=== PATIENT | male | born 1990 | race Caucasian/White ===

== ENCOUNTER 2019-08-03 16:10 | Emergency (ER) | payer BC, SELFPAY ==
--- NOTE | ~2019-08-03 | CT_ITS ---
EXAMINATION: CT brain wo con EXAM DATE: 08/03/2019 16:38 INDICATION: Posterior head injury with loss of consciousness. TECHNIQUE: Spiral CT of the head was performed without contrast. Axial, coronal and sagittal images were reviewed. The dose-length product (DLP) for this examination was 605.33 mGy-cm. The exposure w as tailored according to patient size, and iterative reconstruction (ASIR) was used as additional dos e reduction technique. Comparison is made to prior examination from 2009. FINDINGS: There is no acute intraparenchymal hemorrhage. No evidence of intraparenchymal brain mass lesion. No evidence of acute infarction. There is no mass effect or midline shift. The ventricles are normal in size. There are no extra-axial collections. There are no acute calvarial fractures. T he orbits are unremarkable. Small vertex scalp fluid collection, contusion/hematoma. There is nearly opacified right frontal sinus, with a defect in the anterior sinus wall and some smal l bone densities within the sinus. This could be from a remote injury assuming that there is no suspi cion of acute right brow injury. Please clinically correlate. IMPRESSION: 1. No acute intracranial findings. 2. Small vertex scalp contusion/hematoma without underlying fracture. 3. Nearly opacified right frontal sinus with anterior sinus wall defect, some displaced bone fragmen ts into the sinus which could be from old injury but please clinically correlate. Reviewed, dictated and finalized at location A. IMPRESSION: 1. No acute intracranial findings. 2. Small vertex scalp contusion/hematoma without underlying fracture. 3. Nearly opacified right frontal sinus with anterior sinus wall defect, some displaced bone fragments into the sinus which could be from old injury but plea se clinically correlate.
[2019-08-03 16:27] VITALS: BP 159/100; PULSE 77; RESP 20; TEMP 36.8; O2SAT 100
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
[2019-08-03 16:59] VITALS: RESP 20
== END 2019-08-03 16:59 | disposition home or self-care (01) ==
PROVIDERS: Emergency Provider Family Medicine
DX: S09.90XA Unspecified injury of head, initial encounter (principal); W22.8XXA Striking against or struck by other objects, initial encounter
CPT/HCPCS: 70450; 99282; 99284

== ENCOUNTER 2019-11-10 11:59 | Emergency (ER) | payer BC, SELFPAY ==
[2019-11-10 12:21] VITALS: BP 142/81; PULSE 85; RESP 14; TEMP 36.7
[2019-11-10 12:54] LABS: Add Urine Microscopic? YES; Appearance Urine Sl Cloudy (Clear); Bilirubin Urine Negative (Negative); Blood Urine Negative (Negative); Color Urine Yellow (Yellow); Glucose Urine UA Negative (Negative); Ketones Urine Negative (Negative); Leukocyte Esterase Ur 1+ (Negative); Nitrate Urine Negative (Negative); Protein Urine Trace (Negative); Specific Grav Ur >= 1.030 (1.010-1.020)
[2019-11-10 12:59] LABS: Bacteria Urine Trace /hpf; RBC Urine 0-2 /hpf (0-2); WBC Urine 31-50 /hpf (0-3)
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
[2019-11-10] MEDS: AZITHROMYCIN 250 MG TABLET 1000 MG PO (13:14)
[2019-11-10] MEDS: cefTRIAXone 250 MG VIAL IM (13:15)
[2019-11-10 13:20] VITALS: BP 121/63; PULSE 81; RESP 16; TEMP 36.4
[2019-11-10 13:30] LABS: HIV 1 P24 AG Negative (Negative); HIV 1/2 AB Negative (Negative)
[2019-11-14 16:49] LABS: RPR Screen Non-Reactive (Non-Reactive)
== END 2019-11-10 13:23 | disposition home or self-care (01) ==
PROVIDERS: Emergency Provider Emergency Medicine
DX: Z20.2 Contact with and (suspected) exposure to infections with a predominantly sexual mode of transmission (principal)
CPT/HCPCS: 36415; 81001; 86592; 86703; 87491; 87591; 96372; 99283; A9270; J0696

== ENCOUNTER 2020-04-04 23:32 | Emergency (ER) | payer BC, SELFPAY ==
[2020-04-04 23:48] VITALS: BP 152/88; PULSE 98; RESP 18; TEMP 37; O2SAT 99
--- NOTE | 2020-04-04 23:58 | ED.GENADULT ---
HPI - General Adult General Chief complaint: Dental/Oral Stated complaint: Right sided Jaw Pain Source: patient and family Mode of arrival: ambulatory Limitations: no limitations History of Present Illness HPI narrative: Kevin is a 30M with a PMH of a mandible reconstruction, poor dentition and dental infections that came in with dental pain for 4-5 days. It is exquisitely tenderer in the right bottom molars and is getting swollen. He is working to try and get into a dentist but is having trouble. No dysphagia, trouble breathing, or any other concerns. Related Data Allergies Allergy/AdvReac Type Severity Reaction Status Date / Time No Known Allergies Allergy Verified 08/03/19 16:27 Review of Systems Constitutional: Constitutional: Reports as per HPI and Reports no additional constitutional complaints Eyes: Eyes: Reports no additional eye complaints ENT: Reports as per HPI Cardiovascular: Cardiovascular: Reports no additional cardiovascular complaints Respiratory: Respiratory: Reports no additional respiratory complaints Gastrointestinal: Gastrointestinal: Reports no additional gastrointestinal complaints Musculoskeletal: Musculoskeletal: Reports no additional musculoskeletal complaints Integumentary/Breasts: Skin/Breast: Reports system reviewed and no additional complaints, except as docu Neurologic: Reports system reviewed and no additional complaints, except as documented [facility] Past Medical History Medical History (Updated 04/05/20 @ 00:10 by Louis Ceja DO) Patient denies medical problems Social History Social History Gender identity (if verbalized by the patient): Male Exam Const: General: no acute distress and alert Orientation/consciousness: patient oriented x3 Limitations: No altered mental status HENMT: Head: normal to inspection Other: Poor dentition on the bottom right molars. They were very TTP on the teeth and the gum with swelling. Eyes: Conjunctivae: conjunctivae normal Pupils: Equal, round and reactive pupils present Neck: Neck: normal visual inspection Chest: Chest palpation & inspection: normal inspection of the chest Resp: Effort & Inspection: normal respiratory effort Cardio: Rate: regular rate Skin: General skin exam: normal color Rashes: no rashes Neuro: General: patient oriented x3 and moves all extremities Extrem: General: normal to inspection Course Course Emergency Course: Leonid was evaluated. He was given oxycodone for pain and the first dose of Augmentin. Scripts were sent then he was discharged. Vital Signs Vital signs: Vital Signs Temperature 98.6 F 04/04/20 23:48 Pulse Rate 98 04/04/20 23:48 Respiratory Rate 18 04/04/20 23:48 Blood Pressure 152/88 H 04/04/20 23:48 Pulse Oximetry 99 04/04/20 23:48 Temperature 98.6 F 04/04/20 23:48 Pulse Rate 98 04/04/20 23:48 Respiratory Rate 18 04/04/20 23:48 Blood Pressure 152/88 H 04/04/20 23:48 Pulse Oximetry 99 04/04/20 23:48 Medical Decision Making Vital Signs Vital Signs: Vital Signs Temperature 98.6 F 04/04/20 23:48 Pulse Rate 98 04/04/20 23:48 Respiratory Rate 18 04/04/20 23:48 Blood Pressure 152/88 H 04/04/20 23:48 Pulse Oximetry 99 04/04/20 23:48 Temperature 98.6 F 04/04/20 23:48 Pulse Rate 98 04/04/20 23:48 Respiratory Rate 18 04/04/20 23:48 Blood Pressure 152/88 H 04/04/20 23:48 Pulse Oximetry 99 04/04/20 23:48 Discharge Plan Discharge Clinical Impression: Abscess, dental Patient Disposition: Home, Self-Care Condition: Stable Instructions: Dental Abscess (ED) Additional Instructions: Please return to the ED for any new, concerning, or worsening symptoms. Prescriptions: New oxycodone 5 mg tablet 5 mg PO Q8H PRN (Reason: pain) Qty: 10 RF: 0 amoxicillin-pot clavulanate [Augmentin] 875-125 mg tablet 1 tablet PO Q12H Qty: 10 RF:
[2020-04-05] MEDS: AMOXICILLIN/CLAVULANATE K 875-125 MG TAB 1 TABLET PO (00:01)
== END 2020-04-05 00:30 | disposition home or self-care (01) ==
PROVIDERS: Emergency Provider Family Medicine; PCP Internal Medicine
DX: K04.7 Periapical abscess without sinus (principal)
CPT/HCPCS: 99283; A9270

== ENCOUNTER 2020-05-10 00:31 | Emergency (ER) | payer BC, SELFPAY ==
[2020-05-10 00:34] VITALS: BP 138/80; PULSE 66; RESP 18; TEMP 36.6; O2SAT 96
[2020-05-10] MEDS: oxyCODONE HCL (*CRX) 5 MG TAB IR PO (00:50)
[2020-05-10] MEDS: AMOXICILLIN/CLAVULANATE K 875-125 MG TAB 1 TABLET PO (00:50)
--- NOTE | 2020-05-10 00:50 | ED.GENADULT ---
HPI - General Adult General Chief complaint: Dental/Oral Stated complaint: tooth ache Source: patient Mode of arrival: ambulatory History of Present Illness HPI narrative: Leonid presented to clinic with right lower jaw and tooth pain. He has poor dentition with multiple recurrent infections. He has done well with augmentin in the past. No fevers, chills, dysphagia, voice changes, or SOB. Related Data Allergies Allergy/AdvReac Type Severity Reaction Status Date / Time acetaminophen [From Tylenol] Allergy Hives Verified 05/10/20 00:40 Review of Systems Review of Systems: All systems reviewed & are unremarkable except as noted in HPI and below PMFSH Past Medical History Medical History Patient denies medical problems Social History Social History Gender identity (if verbalized by the patient): Male Exam Const: General: no acute distress and alert Orientation/consciousness: patient oriented x3 Limitations: No altered mental status HENMT: Other: Right cheek was swollen and TTP. There was poor dentition and they were very TTP. Eyes: Conjunctivae: conjunctivae normal Pupils: Equal, round and reactive pupils present Neck: Neck: normal visual inspection Chest: Chest palpation & inspection: normal inspection of the chest Resp: Effort & Inspection: normal respiratory effort Cardio: Rate: regular rate Skin: General skin exam: normal color Rashes: no rashes Neuro: General: patient oriented x3 and moves all extremities Extrem: General: normal to inspection Psych: Mental Status: mental status grossly normal Course Course Emergency Course: Kevin was evaluated. He was given a dose of Augmentin and oxycodone. He was discharged to / with his PCP and a dentist [facility]. Vital Signs Vital signs: Vital Signs Temperature 97.8 F 05/10/20 00:34 Pulse Rate 66 05/10/20 00:34 Respiratory Rate 18 05/10/20 00:34 Blood Pressure 138/80 05/10/20 00:34 Pulse Oximetry 96 05/10/20 00:34 Temperature 97 F L 05/10/20 01:00 Pulse Rate 78 05/10/20 01:00 Respiratory Rate 18 05/10/20 01:00 Blood Pressure 120/80 05/10/20 01:00 Pulse Oximetry 98 05/10/20 01:00 Medical Decision Making Vital Signs Vital Signs: Vital Signs Temperature 97.8 F 05/10/20 00:34 Pulse Rate 66 05/10/20 00:34 Respiratory Rate 18 05/10/20 00:34 Blood Pressure 138/80 05/10/20 00:34 Pulse Oximetry 96 05/10/20 00:34 Temperature 97 F L 05/10/20 01:00 Pulse Rate 78 05/10/20 01:00 Respiratory Rate 18 05/10/20 01:00 Blood Pressure 120/80 05/10/20 01:00 Pulse Oximetry 98 05/10/20 01:00 Discharge Plan Discharge Clinical Impression: Dental caries Patient Disposition: Home, Self-Care Condition: Stable Instructions: Dental Abscess (ED) Additional Instructions: Please return to the emergency department for any new, concerning, or worsening symptoms. Please get in with a Dentist as soon as possible. Prescriptions: New amoxicillin-pot clavulanate [Augmentin] 875-125 mg tablet 1 tablet PO Q12H Qty: 10 RF: 0 oxycodone 5 mg tablet 5 mg PO Q8H PRN (Reason: pain) Qty: 10 RF: 0 amoxicillin-pot clavulanate [Augmentin] 875-125 mg tablet 1 tablet PO Q12H Qty: 10 RF: 0 oxycodone 5 mg tablet 5 mg PO Q8H PRN (Reason: pain) Qty: 10 RF: 0 Follow-up/Referrals: Aniya Llamas MD [Primary Care Provider] - Stand Alone Forms: Work/School Release IP
[2020-05-10 01:00] VITALS: BP 120/80; PULSE 78; RESP 18; TEMP 36.1; O2SAT 98
== END 2020-05-10 01:02 | disposition home or self-care (01) ==
PROVIDERS: Emergency Provider Family Medicine; PCP Internal Medicine
DX: K02.9 Dental caries, unspecified (principal)
CPT/HCPCS: 99283; A9270

== ENCOUNTER 2020-07-08 10:03 | Emergency (ER) | payer BC, SELFPAY ==
[2020-07-08 10:10] VITALS: BP 98/77; PULSE 97; RESP 14; TEMP 36.2; O2SAT 98
--- NOTE | 2020-07-08 10:22 | ED.WOUNDLAC ---
HPI - Wound/Laceration General Chief Complaint: Wound/Laceration Stated Complaint: cut finger Source: patient and RN notes reviewed Mode of arrival: ambulatory Limitations: no limitations History of Present Illness Onset (ago): minute(s) (30) Extremity Location: Left: hand (tip of ring finger) Place: home Patient tetanus UTD: No Context: accidental Associated symptoms: pain Treatments prior to arrival: bandage Related Data Allergies Allergy/AdvReac Type Severity Reaction Status Date / Time acetaminophen [From Tylenol] Allergy Hives Verified 05/10/20 00:40 Review of Systems Review of Systems: All systems reviewed & are unremarkable except as noted in HPI and below PMFSH Past Medical History Medical History (Updated 07/08/20 @ 10:53 by Baldev Rios MD) Bipolar 1 disorder Surgical History Surgical History (Updated 07/08/20 @ 10:51 by Baldev Rios MD) History of mandibular surgery Social History Social History (Updated 07/08/20 @ 10:52 by Baldev Rios MD) Smoking packs per day: 1 Smoking cigarettes per day: 20.0 Smoking status: Current every day smoker Tobacco type: cigarettes Alcohol intake: never Substance use type: marijuana Other substance usage details: occasional Gender identity (if verbalized by the patient): Male Exam Const: General: healthy appearing and no acute distress Nutritional Appearance: well nourished Orientation/consciousness: patient oriented x3 HENMT: Head: normal to inspection Ears: external ears normal General nose exam: Normal external nose present Face and sinus: normal facial exam Mouth: Yes moist mucous membranes Eyes: Conjunctivae: conjunctivae normal Pupils: Equal, round and reactive pupils present EOM: EOMs intact bilaterally Neck: Neck: normal visual inspection Resp: Effort & Inspection: normal respiratory effort Auscultation: clear to auscultation bilaterally Cardio: Rate: regular rate Rhythm: regular rhythm GI: GI Palp: Yes Soft to palpation and No Tenderness to palpation present (GI) Auscultation: normal bowel sounds Back/Spine/Pelvis: Cervical Spine: cervical ROM normal Thoracic/Lumbar Spine: thoraco-lumbar ROM normal Skin: General skin exam: normal color Rashes: no rashes Wounds: wounds noted laceration left distal 4th finger size (1.5 cm) Neuro: General: patient oriented x3, moves all extremities and no focal motor deficits Speech: normal speech Gait exam (Neuro): Normal gait present Extrem: General: normal to inspection and no clubbing, cyanosis or edema Psych: Appearance: grossly normal and well kempt Mental Status: mental status grossly normal Affect: normal affect Attitude: cooperative Thought content: Yes Normal thought content present Course Vital Signs Vital signs: Vital Signs Temperature 36.2 C L 07/08/20 10:10 Pulse Rate 97 07/08/20 10:10 Respiratory Rate 14 07/08/20 10:10 Blood Pressure 98/77 L 07/08/20 10:10 Pulse Oximetry 98 07/08/20 10:10 Temperature 36.2 C L 07/08/20 10:10 Pulse Rate 97 07/08/20 10:10 Respiratory Rate 14 07/08/20 11:01 Blood Pressure 98/77 L 07/08/20 10:10 Pulse Oximetry 100 07/08/20 11:01 Procedures Laceration Laceration 1: Date: 07/08/20 Site: hand (4th finger) Side (If applicable): left Size (cm): 1.5 Description: linear and clean Depth: simple, single layer Local Anesthetic: lidocaine 1% Amount of anesthesia used (mL): 3 Pre-repair: wound explored and irrigated ====== Skin Level ====== Skin layer closed with: nylon Size (cm): 4-0 Number of sutures: 6 Technique: running ====== Subcutaneous Layer ====== ====== Muscle Layer ====== ====== Tendon Layer ====== Dressing: tube gauze Discharge Plan Discharge Clinical Impression: Laceration Patient Disposition: Home, Self-Care Condition: Improved Instructions: Care
[2020-07-08] MEDS: LIDOCAINE HCL 1% LOCAL INJ 20 ML VIAL (10:35)
[2020-07-08] MEDS: TETANUS,DIPHTHERIA,AC PERTUSSIS ADULT 0.5 ML (ADACEL) IM (10:49)
--- NOTE | 2020-07-08 10:54 | PC.NURSE ---
6 SUTURES PLACED BY ERP
[2020-07-08 11:01] VITALS: RESP 14; O2SAT 100
== END 2020-07-08 11:00 | disposition home or self-care (01) ==
PROVIDERS: Emergency Provider Emergency Medicine; PCP Internal Medicine
DX: S61.215A Laceration without foreign body of left ring finger without damage to nail, initial encounter (principal)
CPT/HCPCS: 12001; 90471; 90715; 99283

== ENCOUNTER 2020-08-04 13:06 | Emergency (ER) | payer SELFPAY ==
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
[2020-08-04] MEDS: ONDANSETRON INJ 4 MG/2 ML VIAL IV PUSH (13:30)
[2020-08-04] MEDS: KETOROLAC 30 MG/ML VIAL (*BKC) IV PUSH (13:30)
[2020-08-04] MEDS: HYDROmorphone HCL INJ (*CRX) 2 MG/ML VIAL 0.5 MG IV PUSH (13:30)
[2020-08-04 13:50] VITALS: BP 150/90; PULSE 125; RESP 22; TEMP 36.7; O2SAT 100
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
[2020-08-04 15:00] VITALS: BP 150/90; PULSE 103; RESP 20; TEMP 36.7; O2SAT 100
--- NOTE | 2020-08-04 15:04 | PC.NURSE ---
1315 HARD C-COLLAR APPLIED WOUNDS CLEANED WITH SHURCLENS AND PRESSURE DRESSING APPLIED TO LEFT HAND TO STOP BLEEDING PANTS CUT OFF AND PT TOLD NURSE TO THROW THEM AWAY PT THEN TAKEN TO CT
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
== END 2020-08-04 15:07 | disposition short-term general hospital (02) ==
PROVIDERS: Emergency Provider Emergency Medicine; PCP Internal Medicine
DX: S61.412A Laceration without foreign body of left hand, initial encounter (principal); V89.2XXA Person injured in unspecified motor-vehicle accident, traffic, initial encounter
CPT/HCPCS: 70450; 72125; 96374; 96375; 99285; J1170; J1885; J2405; L0150

== ENCOUNTER 2020-08-05 04:57 | Emergency (ER) | payer SELFPAY ==
[2020-08-05 05:00] VITALS: BP 152/92; PULSE 107; RESP 20; TEMP 36.5; O2SAT 97
[2020-08-05] MEDS: KETOROLAC (*BKC) 60 MG/2 ML VIAL (05:20)
[2020-08-05 05:25] VITALS: BP 158/89; PULSE 105; RESP 20; TEMP 36.9; O2SAT 97
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
== END 2020-08-05 05:41 | disposition home or self-care (01) ==
PROVIDERS: Emergency Provider Emergency Medicine
DX: S61.419D Laceration without foreign body of unspecified hand, subsequent encounter (principal)
CPT/HCPCS: 96372; 99282; 99283; J1885

== ENCOUNTER 2021-03-14 07:05 | Emergency (ER) | payer BC, SELFPAY ==
--- NOTE | ~2021-03-14 | XR_ITS ---
EXAMINATION: XR tibia fibula LT 2V INDICATION: Left leg pain TECHNIQUE: Two views of the left tibia and fibula are obtained on four radiographs COMPARISON: None available FINDINGS: There are surgical changes of partial fibular resection. There is no fracture, dislocation, or subluxation. The soft tissues are unremarkable. IMPRESSION: 1. No acute osseous abnormality. Reviewed, dictated and finalized at location A. STONE CUTTER
--- NOTE | ~2021-03-14 | XR_ITS ---
EXAMINATION: XR tibia fibula RT 2V INDICATION: Right leg pain TECHNIQUE: Two views of the right tibia and fibula are obtained on four radiographs. COMPARISON: None available FINDINGS: There is no acute fracture, dislocation, or subluxation. There appear to be healed fracture s in the mid tibia and fibula. The soft tissues are unremarkable. The joint spaces are normal. IMPRESSION: 1. No acute osseous abnormality. Reviewed, dictated and finalized at location A. ENT SERVICES MANAGER
--- NOTE | ~2021-03-14 | CT_ITS ---
EXAMINATION: CT cervical spine wo con DATE: 03/14/2021 08:48 INDICATION: Head injury TECHNIQUE: Computed tomography (CT) of the cervical spine was performed without intravenous contrast. The dose-length product (DLP) was 355.46 mGy-cm. Automated exposure control and iterative reconstruc tion technique were employed. COMPARISON: 08/04/2020 FINDINGS: Bone alignment is normal. There is no fracture. The odontoid is intact. The prevertebral so ft tissues are normal. The vertebral body heights and intervertebral disc spaces are normal. There is mild multilevel facet and uncovertebral joint osteoarthritis. Plate and screw fixation are noted in the right mandible. Surgical changes are also noted in the right submandibular region. There are mult iple dental caries. IMPRESSION: 1. Mild cervical spondylosis without acute findings or significant interval change. Reviewed, dictated and finalized at location A. R BOILER IMPRESSION: 1. Mild cervical spondylosis without acute findings or significant interval [place].
--- NOTE | ~2021-03-14 | CT_ITS ---
EXAMINATION: CT brain wo con INDICATION: Head injury COMPARISON: 08/04/2020 TECHNIQUE: Standard unenhanced head CT. The dose-length product (DLP) was 681.00 mGy-cm. The mA was a djusted according to patient size. Iterative reconstruction technique was employed. FINDINGS: There is no intracranial hemorrhage, acute infarction, or abnormal mass lesion. The ventric les are normal. There is no abnormal mass effect or midline shift. The gleason-white matter differentiat ion is normal. The basal cisterns are patent. The orbits are normal. There is mild mucosal thickening of the paranasal sinuses. IMPRESSION: 1. No acute intracranial abnormality. Reviewed, dictated and finalized at location A. OLOGY SUPERVISOR
--- NOTE | ~2021-03-14 | XR_ITS ---
EXAMINATION: XR forearm LT 2V INDICATION: Left forearm pain TECHNIQUE: Two views of the left forearm are obtained on three radiographs COMPARISON: None available FINDINGS: There is no fracture, dislocation, or subluxation. There is ventral soft tissue swelling ov erlying the mid/distal forearm without underlying osseous abnormality. No radiopaque foreign body is identified. IMPRESSION: 1. Soft tissue swelling without acute osseous abnormality. Reviewed, dictated and finalized at location A. CAL LABORATORY TECHNICAL OFFICER
[2021-03-14 07:36] VITALS: BP 162/108; PULSE 110; RESP 18; TEMP 36.4; O2SAT 98
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
[2021-03-14] MEDS: ONDANSETRON HCL ODT 4 MG TABLET PO (08:00)
[2021-03-14 08:40] LABS: SARS-CoV-2 Ag Negative (Negative)
[2021-03-14] MEDS: LIDO 1%/EPINEPHRINE 1:100,000 20 ML VIAL 10 ML INFILTRATE (09:14)
[2021-03-14] MEDS: IBUPROFEN 400 MG TABLET PO (09:22)
[2021-03-14] MEDS: AMOXICILLIN/CLAVULANATE K 875-125 MG TAB 1 TABLET PO (09:23)
[2021-03-14 09:25] VITALS: BP 150/84; PULSE 115; RESP 18; TEMP 36.5; O2SAT 99
[2021-03-14 09:31] VITALS: BP 151/72; PULSE 115; RESP 16; O2SAT 99
== END 2021-03-14 09:50 ==
PROVIDERS: Emergency Provider Family Medicine
DX: S01.91XA Laceration without foreign body of unspecified part of head, initial encounter (principal); S51.852A Open bite of left forearm, initial encounter; W54.0XXA Bitten by dog, initial encounter; S06.9X0A Unspecified intracranial injury without loss of consciousness, initial encounter; Z20.822 Contact with and (suspected) exposure to COVID-19; Y04.0XXA Assault by unarmed brawl or fight, initial encounter
CPT/HCPCS: 12001; 70450; 72125; 73090; 73590; 87426; 99283; 99284; A9270; C9803

== ENCOUNTER 2021-05-05 20:30 | Emergency (ER) | payer BC, SELFPAY ==
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
[2021-05-05 20:43] VITALS: TEMP 36.7
[2021-05-05 20:56] VITALS: BP 143/90; PULSE 97; RESP 18; O2SAT 100
[2021-05-05 21:38] LABS: Add Urine Microscopic? NO; Appearance Urine Clear (Clear); Bilirubin Urine Negative (Negative); Blood Urine Negative (Negative); Color Urine Yellow (Yellow); Glucose Urine UA Negative (Negative); Ketones Urine Negative (Negative); Leukocyte Esterase Ur Negative LEU/UL (Negative); Nitrate Urine Negative (Negative); Protein Urine Negative (Negative); Specific Grav Ur 1.025 (1.010-1.020); Urobilinogen Urine 0.2 mg/dL (0.2-1.0)
[2021-05-05 21:53] VITALS: BP 140/78; PULSE 88; RESP 16; O2SAT 100
[2021-05-05] MEDS: DOXYCYCLINE HYCLATE 100 MG TABLET PO (21:55)
== END 2021-05-05 21:55 | disposition home or self-care (01) ==
PROVIDERS: Emergency Provider Emergency Medicine
DX: N45.1 Epididymitis (principal)
CPT/HCPCS: 81003; 99283; A9270

== ENCOUNTER 2021-06-30 23:42 | Emergency (ER) | payer BC, SELFPAY ==
[2021-06-30 23:45] VITALS: BP 159/89; PULSE 110; RESP 20; TEMP 37; O2SAT 98
--- NOTE | 2021-07-01 00:01 | ED.WOUNDLAC ---
HPI - Wound/Laceration General Chief Complaint: Wound/Laceration Stated Complaint: spider bite Time Seen by Provider: 06/30/21 23:45 Source: patient and RN notes reviewed Mode of arrival: ambulatory Limitations: no limitations History of Present Illness Onset (ago): day(s) (2) Location: abdomen Place: home Patient tetanus UTD: Yes Associated symptoms: pain Treatments prior to arrival: bandage Related Data Home Medications Medication Instructions Recorded Confirmed No Home Medications 06/30/21 06/30/21 Allergies Allergy/AdvReac Type Severity Reaction Status Date / Time acetaminophen [From Tylenol] Allergy Hives Verified 05/10/20 00:40 Review of Systems Review of Systems: All systems reviewed & are unremarkable except as noted in HPI and below PMFSH Past Medical History Medical History Bipolar 1 disorder Cellulitis and abscess of other specified site Hand laceration Surgical History Surgical History History of mandibular surgery Family History Family History Mother No significant family history Social History Social History Smoking packs per day: 1 Smoking cigarettes per day: 20.0 Smoking status: Current every day smoker Tobacco type: cigarettes Alcohol intake: never Substance use type: marijuana Other substance usage details: occasional Gender identity (if verbalized by the patient): Male Exam Const: General: healthy appearing, no acute distress and alert Nutritional Appearance: well nourished Orientation/consciousness: patient oriented x3 Limitations: no limitations HENMT: Head: normal to inspection Ears: external ears normal, TM's normal bilaterally and EAC's normal General nose exam: Normal external nose present and Normal nares present Face and sinus: normal facial exam and sinuses nontender Mouth: Yes lip normal and Yes moist mucous membranes Throat: posterior oropharynx normal Eyes: Conjunctivae: conjunctivae normal Pupils: Equal, round and reactive pupils present EOM: EOMs intact bilaterally Neck: Neck: normal visual inspection and no lymphadenopathy Chest: Chest palpation & inspection: normal inspection of the chest Resp: Effort & Inspection: normal respiratory effort Auscultation: clear to auscultation bilaterally Cardio: Rate: regular rate Rhythm: regular rhythm GI: GI Palp: Yes Soft to palpation and Yes Tenderness to palpation present (GI) (discrete 10 cm x 4 cm superficial firm minimally swollen draining area.) Auscultation: normal bowel sounds Back/Spine/Pelvis: Back: no CVA tenderness Skin: General skin exam: normal color Rashes: no rashes Neuro: General: patient oriented x3, moves all extremities, no meningeal signs, no focal motor deficits and CN's II-XI intact bilaterally Extrem: General: normal to inspection and no pedal edema Psych: Appearance: grossly normal and well kempt Mental Status: mental status grossly normal Affect: normal affect Attitude: cooperative Thought content: Yes Normal thought content present Course Course Emergency Course: Pt was stable in the ED. Reevaluation(s) Reevaluation #1: VSS. Date: 06/30/21 Time: 23:53 Vital Signs Vital signs: Vital Signs Temperature 37.0 C 06/30/21 23:45 Pulse Rate 110 H 06/30/21 23:45 Respiratory Rate 20 06/30/21 23:45 Blood Pressure 159/89 H 06/30/21 23:45 Pulse Oximetry 98 06/30/21 23:45 Temperature 36.6 C 07/01/21 00:22 Pulse Rate 100 07/01/21 00:22 Respiratory Rate 20 07/01/21 00:22 Blood Pressure 140/80 07/01/21 00:22 Pulse Oximetry 99 07/01/21 00:22 MDM - Wound/Laceration Differential Diagnosis Differential diagnosis: Likely abscess and other (cellulitis) Medical Records Attestation: I reviewed the patient's med
[2021-07-01] MEDS: IBUPROFEN 400 MG TABLET 800 MG PO (00:05)
[2021-07-01] MEDS: cefTRIAXone 1 GM VIAL IM (00:05)
[2021-07-01] MEDS: LIDOCAINE HCL 1% LOCAL INJ 20 ML VIAL (00:13)
[2021-07-01 00:22] VITALS: BP 140/80; PULSE 100; RESP 20; TEMP 36.6; O2SAT 99
== END 2021-07-01 00:25 | disposition home or self-care (01) ==
PROVIDERS: Emergency Provider Emergency Medicine
DX: L03.311 Cellulitis of abdominal wall (principal)
CPT/HCPCS: 96372; 99283; A9270; J0696

== ENCOUNTER 2022-09-18 08:12 | Emergency (ER) | payer BC, SELFPAY ==
[2022-09-18 08:14] VITALS: BP 151/86; PULSE 103; TEMP 36.6; O2SAT 98
--- NOTE | 2022-09-18 08:28 | ED.LOWEXIN ---
HPI - Extremity Injury (Lower) General Chief Complaint: Extremity Injury, Lower Stated Complaint: ingrown toenail Time Seen by Provider: 09/18/22 08:13 Source: patient Mode of arrival: ambulatory Limitations: no limitations History of Present Illness HPI Narrative: patient with a left great toe infection with redness and drainage lateral aspect of his left large toe surrounding the toenail that is warm and tender to touch no known injury, also has cracking in the skin in his feet with no drainage. Related Data Allergies Allergy/AdvReac Type Severity Reaction Status Date / Time acetaminophen [From Tylenol] Allergy Hives Verified 09/18/22 08:17 Review of Systems Review of Systems: All systems reviewed & are unremarkable except as noted in HPI and below PMFSH Past Medical History Medical History Bipolar 1 disorder Cellulitis and abscess of other specified site Hand laceration Surgical History Surgical History History of mandibular surgery Family History Family History Mother No significant family history Social History Social History Smoking packs per day: 1 Smoking cigarettes per day: 20.0 Smoking status: Current every day smoker Tobacco type: cigarettes Alcohol intake: never Substance use type: marijuana Other substance usage details: occasional Gender identity (if verbalized by the patient): Male Exam Const: General: healthy appearing Nutritional Appearance: well nourished Orientation/consciousness: patient oriented x3 HENMT: Head: normal to inspection Eyes: Conjunctivae: conjunctivae normal Chest: Chest palpation & inspection: normal inspection of the chest Resp: Effort & Inspection: normal respiratory effort Auscultation: clear to auscultation bilaterally Cardio: Rate: regular rate Rhythm: regular rhythm GI: GI Palp: Yes Soft to palpation Skin: Other: Has a redness and drainage surrounding the toenail of his left great toe with cracking of the skin between his toes and the plantar surface of his feet bilaterally. Neuro: General: patient oriented x3 Extrem: General: normal to inspection Psych: Mental Status: mental status grossly normal Course Course Emergency Course: Patient with some what appears to be infected surrounding left large toe consistent with paronychia and a dose of antibiotics were given. Vital Signs Vital signs: Vital Signs Temperature 36.6 C 09/18/22 08:14 Pulse Rate 103 H 09/18/22 08:14 Blood Pressure 151/86 H 09/18/22 08:14 Pulse Oximetry 98 09/18/22 08:14 Oxygen Delivery Room Air 09/18/22 08:14 Temperature 36.6 C 09/18/22 08:14 Pulse Rate 103 H 09/18/22 08:14 Blood Pressure 151/86 H 09/18/22 08:14 Pulse Oximetry 98 09/18/22 08:14 Oxygen Delivery Room Air 09/18/22 08:14 Critical Care Time Critical Care Time Critical Care Time: No Discharge Plan Discharge Clinical Impression: Paronychia, Treva infection Patient Disposition: Home, Self-Care Condition: Stable Instructions: Antibiotic Form, Paronychia (ED), Skin Yeast Infection (ED) Additional Instructions: advised to take medicine as prescribed and follow-up with primary care physician if symptoms persist or worsen. Prescriptions: New amoxicillin-pot clavulanate [Augmentin] 500-125 mg tablet 1 tablet PO TID Qty: 20 0RF nystatin 100,000 unit/gram cream 1 applic topical TID 10 Days Qty: 30 0RF naproxen 500 mg tablet 500 mg PO BID PRN (Reason: pain) Qty: 14 0RF Follow-up/Referrals: UNKNOWN,DOCTOR [Primary Care Provider] - Time of Disposition: 08:33
[2022-09-18] MEDS: cefTRIAXone 1 GM, LIDOCAINE HCL 1% LOCAL INJ 2.1 ML IM (08:42)
== END 2022-09-18 08:47 | disposition home or self-care (01) ==
PROVIDERS: Emergency Provider Emergency Medicine
DX: B37.2 Candidiasis of skin and nail (principal); F17.210 Nicotine dependence, cigarettes, uncomplicated
CPT/HCPCS: 96372; 99283; J0696

== ENCOUNTER 2023-02-08 00:16 | Emergency (ER) | payer BC, SELFPAY ==
[2023-02-08 00:20] VITALS: BP 133/74; PULSE 102; RESP 18; TEMP 36.9; O2SAT 98
--- NOTE | 2023-02-08 00:26 | ED.SKABFB ---
HPI - Skin/Abscess/Foreign Bdy General Chief complaint: Skin/Abscess/Foreign Body Stated complaint: Abscess on Left Knee Time Seen by Provider: 02/08/23 00:24 Source: patient Mode of arrival: ambulatory Limitations: no limitations History of Present Illness HPI narrative: 32-year-old male with a history of bipolar disorder, recurrent cellulitis presents to the ER with -- right knee wound/ abscess for the past 3 days. Unsure as to how he got it. complaint: abscess/boil Onset (ago): day(s) ( Present for the past 3 days) Tetanus up to date: yes Location: RLE Severity: moderate Pain Consistency: constant Relieving factors: none Exacerbating factors: none Associated symptoms: denies other symptoms Treatments prior to arrival: none Related Data Allergies Allergy/AdvReac Type Severity Reaction Status Date / Time acetaminophen [From Tylenol] Allergy Hives Verified 02/08/23 00:19 Review of Systems Review of Systems: All systems reviewed & are unremarkable except as noted in HPI and below Constitutional: Constitutional: Reports as per HPI and Reports no additional constitutional complaints Eyes: Eyes: Reports as per HPI and Reports no additional eye complaints ENT: Reports system reviewed and no additional complaints, except as documented and Reports as per HPI Cardiovascular: Cardiovascular: Reports as per HPI and Reports no additional cardiovascular complaints Respiratory: Respiratory: Reports as per HPI and Reports no additional respiratory complaints Gastrointestinal: Gastrointestinal: Reports as per HPI and Reports no additional gastrointestinal complaints Genitourinary: Genitourinary: Reports no additional male genitourinary complaints and Reports as per HPI Musculoskeletal: Musculoskeletal: Reports no additional musculoskeletal complaints and Reports as per HPI Integumentary/Breasts: Comments: right knee has 5 cm erythematous lesion with a central boil. no drainage. Neurologic: Reports system reviewed and no additional complaints, except as documented Psychiatric: Psychiatric: Reports no additional psychiatric complaints and Reports as per HPI Endocrine: Endocrine: Reports no additional endocrine complaints and Reports as per HPI Hematologic/Lymphatic: Hematologic/Lymphatic: Reports no additional hematologic/lymphatic complaints and Reports as per HPI Allergic/Immunologic: Allergic/Immunologic: Reports no additional allergic/immunologic complaints and Reports as per HPI PMFSH Past Medical History Medical History Bipolar 1 disorder Cellulitis and abscess of other specified site Hand laceration Surgical History Surgical History History of mandibular surgery Family History Family History Mother No significant family history Social History Social History Smoking packs per day: 1 Smoking cigarettes per day: 20.0 Smoking status: Current every day smoker Tobacco type: cigarettes Alcohol intake: never Substance use type: marijuana Other substance usage details: occasional Gender identity (if verbalized by the patient): Male Exam Const: General: no acute distress Nutritional Appearance: well nourished Orientation/consciousness: patient oriented x3 Limitations: no limitations HENMT: Head: normal to inspection Ears: external ears normal Face/Nose/Sinus: Normal external nose present Face and sinus: normal facial exam Mouth: Yes Normal oral and palatal mucosa present Throat: posterior oropharynx normal Eyes: Conjunctivae: conjunctivae normal Pupils: Equal, round and reactive pupils present EOM: EOMs intact bilaterally Direct Ophthalmoscopy: no photophobia Neck: Neck: normal visual inspection and no lymphadenopathy Chest: Chest palpation & inspection:
[2023-02-08 00:35] LABS: Glucose Point of Care 127 mg/dl (65-105)
[2023-02-08] MEDS: AMOXICILLIN/CLAVULANATE K 875-125 MG TAB 1 TABLET PO (00:38)
[2023-02-08 00:53] VITALS: BP 133/74; PULSE 98; RESP 18; TEMP 36.9; O2SAT 99
== END 2023-02-08 00:55 | disposition home or self-care (01) ==
PROVIDERS: Emergency Provider Internal Medicine Critical Care Medicine
DX: L03.115 Cellulitis of right lower limb (principal); F17.210 Nicotine dependence, cigarettes, uncomplicated
CPT/HCPCS: 82948; 99283; A9270

== ENCOUNTER 2023-08-22 19:00 | Emergency (ER) | payer BC, SELFPAY ==
[2023-08-22 19:05] VITALS: BP 135/88; PULSE 106; RESP 18; TEMP 36.8; O2SAT 96
--- NOTE | 2023-08-22 19:15 | ED.SKABFB ---
HPI - Skin/Abscess/Foreign Bdy General Chief complaint: Wound/Laceration Stated complaint: skin infection Time Seen by Provider: 08/22/23 19:05 Source: patient Mode of arrival: ambulatory Limitations: no limitations History of Present Illness HPI narrative: 33-year-old male with a history of bipolar disorder, recurrent cellulitis presents to the ER with a 3 day history of -- red tender cutaneous spot in the left CVA angle and right lateral leg. No fever or chills complaint: other ( cellulitis) Onset (ago): day(s) ( 3 days) Tetanus up to date: yes Location: back and RLE Severity: moderate Quality: aching Pain Consistency: constant Relieving factors: none Exacerbating factors: none Context: none Associated symptoms: denies other symptoms Treatments prior to arrival: none Related Data Allergies Allergy/AdvReac Type Severity Reaction Status Date / Time acetaminophen [From Tylenol] Allergy Hives Verified 02/08/23 00:19 Review of Systems Review of Systems: All systems reviewed & are unremarkable except as noted in HPI and below Constitutional: Constitutional: Reports as per HPI and Reports no additional constitutional complaints Eyes: Eyes: Reports as per HPI and Reports no additional eye complaints ENT: Reports system reviewed and no additional complaints, except as documented and Reports as per HPI Cardiovascular: Cardiovascular: Reports as per HPI and Reports no additional cardiovascular complaints Respiratory: Respiratory: Reports as per HPI and Reports no additional respiratory complaints Gastrointestinal: Gastrointestinal: Reports as per HPI and Reports no additional gastrointestinal complaints Genitourinary: Genitourinary: Reports no additional male genitourinary complaints and Reports as per HPI Musculoskeletal: Musculoskeletal: Reports no additional musculoskeletal complaints and Reports as per HPI Integumentary/Breasts: Comments: red tender erythematous lesion over the left CVA angle and right lateral leg. Neurologic: Reports system reviewed and no additional complaints, except as documented and Reports as per HPI Psychiatric: Psychiatric: Reports no additional psychiatric complaints and Reports as per HPI Endocrine: Endocrine: Reports no additional endocrine complaints and Reports as per HPI Hematologic/Lymphatic: Hematologic/Lymphatic: Reports no additional hematologic/lymphatic complaints and Reports as per HPI Allergic/Immunologic: Allergic/Immunologic: Reports no additional allergic/immunologic complaints and Reports as per HPI [facility] Past Medical History Medical History Bipolar 1 disorder Cellulitis and abscess of other specified site Hand laceration Surgical History Surgical History History of mandibular surgery Family History Family History Mother No significant family history Social History Social History Smoking packs per day: 1 Smoking cigarettes per day: 20.0 Smoking status: Current every day smoker Tobacco type: cigarettes Alcohol intake: never Substance use type: marijuana Other substance usage details: occasional Gender identity (if verbalized by the patient): Male Exam Const: General: no acute distress Orientation/consciousness: patient oriented x3 Limitations: no limitations HENMT: Head: normal to inspection Ears: external ears normal Face/Nose/Sinus: Normal external nose present Face and sinus: normal facial exam Mouth: Yes Normal oral and palatal mucosa present Throat: posterior oropharynx normal Eyes: Conjunctivae: conjunctivae normal Pupils: Equal, round and reactive pupils present EOM: EOMs intact bilaterally Direct Ophthalmoscopy: no photophobia Neck: Neck: normal visual inspection, no lymphadenopathy and no
[2023-08-22] MEDS: cefTRIAXone 1 GM, LIDOCAINE HCL 1% LOCAL INJ 2.1 ML IM (19:34)
== END 2023-08-22 19:45 | disposition home or self-care (01) ==
PROVIDERS: Emergency Provider Internal Medicine Critical Care Medicine
DX: L03.115 Cellulitis of right lower limb (principal); L03.312 Cellulitis of back [any part except buttock and flank]; F31.9 Bipolar disorder, unspecified; F17.210 Nicotine dependence, cigarettes, uncomplicated
CPT/HCPCS: 96372; 99283

== ENCOUNTER 2023-09-24 03:04 | Emergency (ER) | payer BC, SELFPAY ==
[2023-09-24 03:08] VITALS: BP 158/78; PULSE 108; RESP 18; TEMP 36.4; O2SAT 99
--- NOTE | 2023-09-24 03:17 | ED.GENADULT ---
HPI - General Adult General Chief complaint: Urogenital-Male Stated complaint: testicle pain History of Present Illness HPI narrative: This is a 33-year-old male history of STDs presenting with penile discharge and bilateral testicle pain. Patient has had symptoms for the last 2 days. Patient has had unprotected sex with 2 partners in the last 6 months. He has a history of gonorrhea in the past. no fever chills nausea vomiting diarrhea or abdominal pain. Related Data Allergies Allergy/AdvReac Type Severity Reaction Status Date / Time acetaminophen [From Tylenol] Allergy Hives Verified 02/08/23 00:19 [facility] Past Medical History Medical History Bipolar 1 disorder Cellulitis and abscess of other specified site Hand laceration Surgical History Surgical History History of mandibular surgery Family History Family History Mother No significant family history Social History Social History Smoking packs per day: 1 Smoking cigarettes per day: 20.0 Smoking status: Current every day smoker Tobacco type: cigarettes Alcohol intake: never Substance use type: marijuana Other substance usage details: occasional Gender identity (if verbalized by the patient): Male Exam Narrative: APPEARANCE: No apparent distress. Head: atraumatic. EYES: EOMI, NOSE: Atraumatic NECK: Trachea midline RESPIRATORY: No increased rate of breathing CARDIOVASCULAR: RRR, ABDOMINAL: Non-distended Soft nontender Genital exam: erythema around the urethral meatus with purulent discharge. Testicles have normal lie, intact cremasteric reflex no tenderness to palpation. MUSCULOSKELETAl: No obvious deformities NEURO: Alert. Moving 4/4 extremities SKIN:: Warm, dry. Normal color PSYCHIATRIC: Normal affect Course Vital Signs Vital signs: Vital Signs Temperature 97.5 F L 09/24/23 03:08 Pulse Rate 108 H 09/24/23 03:08 Respiratory Rate 18 09/24/23 03:08 Blood Pressure 158/78 H 09/24/23 03:08 Pulse Oximetry 99 09/24/23 03:08 Oxygen Delivery Room Air 09/24/23 03:08 Temperature 97.5 F L 09/24/23 03:08 Pulse Rate 108 H 09/24/23 03:08 Respiratory Rate 18 09/24/23 03:08 Blood Pressure 158/78 H 09/24/23 03:08 Pulse Oximetry 99 09/24/23 03:08 Oxygen Delivery Room Air 09/24/23 03:08 Medical Decision Making MDM Narrative Medical decision making narrative: -Course: 33-year-old male presenting with penile discharge and testicle discomfort. No concern for testicular torsion. Testicle pain likely due to bacterial orchitis from STDs. Urinalysis and STD testing will be sent. Patient be treated empirically. Patient given the 1st dose of antibiotics here in the ED and discharged with return precautions. -DDX includes but is not limited to: STI, UTI, or epididymitis, orchitis -Co-morbidities complicating care: bipolar disorder, history of STDs -Independent interpretation of studies: STD testing pending -Interventions: ceftriaxone 500 mg, 2 g metronidazole, 100 mg doxycycline -Shared decision making / Disposition: discharge -RX 100 mg doxycycline b.i.d. times 14 days Vital Signs Vital Signs: Vital Signs Temperature 97.5 F L 09/24/23 03:08 Pulse Rate 108 H 09/24/23 03:08 Respiratory Rate 18 09/24/23 03:08 Blood Pressure 158/78 H 09/24/23 03:08 Pulse Oximetry 99 09/24/23 03:08 Oxygen Delivery Room Air 09/24/23 03:08 Temperature 97.5 F L 09/24/23 03:08 Pulse Rate 108 H 09/24/23 03:08 Respiratory Rate 18 09/24/23 03:08 Blood Pressure 158/78 H 09/24/23 03:08 Pulse Oximetry 99 09/24/23 03:08 Oxygen Delivery Room Air 09/24/23 03:08 Discharge Plan Discharge Clinical Impression: STD (male), Orchitis Patient Disposition
[2023-09-24] MEDS: metroNIDAZOLE 250 MG TABLET 2000 MG PO (03:33)
[2023-09-24] MEDS: DOXYCYCLINE HYCLATE 100 MG TABLET PO (03:33)
[2023-09-24] MEDS: cefTRIAXone 500 MG, LIDOCAINE HCL 1% LOCAL INJ 1 ML IM (03:40)
[2023-09-24 03:45] LABS: Appearance Urine Cloudy (Clear); Bilirubin Urine Negative (Negative); Blood Urine 1+ (Negative); Color Urine Light Yellow (Yellow); Glucose Urine UA Negative (Negative); Ketones Urine Trace (Negative); Leukocyte Esterase Ur 3+ LEU/UL (Negative); Nitrate Urine Negative (Negative); Protein Urine 1+ (Negative); pH Urine 6.5 (5.0-8.0)
[2023-09-24 03:46] LABS: Add Urine Microscopic? YES; Bacteria Urine 1+ /hpf; Squamous Epithelial Cell Urine Rare /hpf (Few); WBC Urine >75 /hpf (0-3)
[2023-09-24 07:47] LABS: Trichomonas Vag PCR NOT DETECTED (NOT DETECTE)
[2023-09-24 11:30] LABS: Chlamydia trachomatis NOT DETECTED (NOT DETECTE); Neisseria gonorrhoeae PCR DETECTED (NOT DETECTE)
--- NOTE | 2023-09-26 12:09 | PC.NURSE ---
Final urine culture report, Mized genital mykel isolated, no further action or treatment needed per ERP
== END 2023-09-24 04:03 | disposition home or self-care (01) ==
PROVIDERS: Emergency Provider Emergency Medicine
DX: A64 Unspecified sexually transmitted disease (principal); N45.2 Orchitis; F17.210 Nicotine dependence, cigarettes, uncomplicated
CPT/HCPCS: 81001; 87086; 87088; 87491; 87591; 87661; 96372; 99283; A9270; J0696